=== PATIENT | male | born 1945 | race Caucasian/White ===

== ENCOUNTER 2024-09-23 06:19 | Observation (INO) ==
--- NOTE | 2024-08-25 08:52 | PAT Medication Instructions ---
Medication Instructions Date of Service August 25, 2024 Home Medications Medication Instructions Recorded tramadol 50 mg tablet 50 mg PO Q4H PRN pain #15 tabs 11/07/23 amlodipine 5 mg tablet 5 mg PO QAM carvedilol 3.125 mg tablet 3.125 mg PO QAM losartan 100 mg tablet 100 mg PO QAM tramadol 50 mg tablet 50 mg PO Q4H PRN ibuprofen 200 mg tablet 200 mg PO Q6H PRN ASK your surgeon for instructions ibuprofen 200 mg tablet 200 mg PO Q6H PRN DO NOT take the morning of surgery losartan 100 mg tablet 100 mg PO QAM Take morning of surgery With a small sip of water, OTHERWISE NOTHING TO EAT OR DRINK AFTER MIDNIGHT: amlodipine 5 mg tablet 5 mg PO QAM carvedilol 3.125 mg tablet 3.125 mg PO QAM tramadol 50 mg tablet 50 mg PO Q4H PRN(if needed) Take evening before surgery tramadol 50 mg tablet 50 mg PO Q4H PRN(if needed) Other Notes If you have any questions please call us at [phone] or [phone] or [phone] or [phone]
--- NOTE | 2024-08-29 12:42 | Anesthesiology Consultation ---
Date of Service August 29, 2024 Assessment & Plan (1) Encounter for pre-operative examination: - Case discussed in detail with Dr. Ledesma who advised patient is acceptable to proceed, nothing additional is needed. - Outpatient joint assessment: Patient is currently scheduled for inpatient pathway. If re-evaluated and patient/surgeon requests outpatient pathway, patient is not advised candidate for outpatient joint program from anesthesia standpoint. Chart Review Chart Review: Acceptable Risk for Surgery and Patient seen in Pre Admission Testing Teaching & Discussion Pre-Anesthesia Teaching/Discussion Notes: Instructed NPO after midnight before surgery, except medications with 15 cc of water. Medication instructions provided according to the PAT guidelines. History Surgery Operation Date: 09/23/24 10:40 Proposed Procedures p Right Total Knee Arthroplasty - Osvaldo Ortiz MD Height/Weight Height: 5 ft 7 in Weight: 92.2 kg Allergies Allergy/AdvReac Type Severity Reaction Status Date / Time oxycodone AdvReac Severe hallucinati Verified 09/01/24 08:37 ons Medications Home Medications Medication Instructions Recorded Confirmed Last Taken amlodipine 5 mg tablet 5 mg PO QAM 11/01/23 08/25/24 11/07/23 05:30 carvedilol 3.125 mg tablet 3.125 mg PO QAM 11/01/23 08/25/24 11/07/23 05:30 losartan 100 mg tablet 100 mg PO QAM 11/01/23 08/25/24 11/06/23 tramadol 50 mg tablet 50 mg PO Q4H PRN pain #15 tabs 11/07/23 08/25/24 Unknown ibuprofen 200 mg tablet 200 mg PO Q6H PRN Pain 08/25/24 08/25/24 Unknown Wheeled Walker #1 ea 08/29/24 08/29/24 Unknown Past Medical History Medical History History of COVID-19 (~2021) denies hospitalized-symptoms resolved History of skin cancer excision from scalp HTN (hypertension) controlled, stable per pt Hx of myocardial infarction remote hx- ~ 2016-states old AL was noted on previous EKG, no treatment, denies cardiac cath, unsure if he had stress test at that time, does not follow w/ cardio Patient denies h/o stroke, seizures, heart failure, DM, blood clots/DVTs or blood transfusions. Exercise / Class Metabolic Activity II 4-5 Yardwork/Stairs/Walk up hill (denies chest discomfort or shortness of breath with one flight of stairs) Past Family History Family History Father Diabetes Heart disease Lung cancer Mother Breast cancer Past Surgical History Surgical History History of carpal tunnel release of both wrists History of left knee replacement Hx of colonoscopy Hx of elbow surgery right recurrent cubital Tunnel Syndrome Hx of knee surgery right knee arthroscopic Hx of shoulder surgery left Past Anesthesia History No Hx of Anesthesia Complications and No Family Hx of Anesthesia Complications History of PONV No Hx of PONV and No Hx of Motion Sickness Social History Smoking Status: Never smoker Do You Dip or Chew Tobacco: No Hx Alcohol Use: No Hx Substance Use: No substance use type: does not use Review of Systems Snoring, denies witnessed apneas. Patient denies chest pain, shortness of breath, dyspnea on exertion, reflux, fever, chills, cough, wheezing, or palpitations. Physical Exam Vital Signs Vitals BP 153/73 P 65 TEMP 98.3 SP02 96% on RA RESP 18 Physical Patient resting comfortably in chair in no acute distress, alert and oriented, responding appropriately throughout visit Full cervical extension range of motion without pain TMD < 3 finger breadths Mallampati Score 3 Dentition: broken tooth, denies loose teeth, caps/crowns, implants or bridges Lungs: normal respiratory effort. Good air movement, clear throughout to auscultation, no adventitious breath sounds Cardiac: regular rate and rhythm, no murmurs noted Carotid arteries: negative bruit bilat Lab Results Anesthesia Preop Results Results Anesthesia Widget: WBC 5.68 K/ul (4.8-10.8) 08/29/24 Hgb 15.2 g/dl (14.0-18.0) 08/29/24 Hct 45.9 % (42.0-52.0) 08/29/24 Plt 190 K/uL (130-400) 08/29/24 Na 141 mmol/L (136-145) 08/29/24 K 4.6 mmol/L (3.5-5.1) 08/29/24 Cl 108 mmol/L (98-107) H 08/29/24 CO2 27 mmol/L (21-32) 08/29/24 BUN 21 mg/dl (6-23) 08/29/24 Creat 1.24 mg/dl (0.6-1.4) 08/29/24 Glucose Level 100 mg/dl (70-99(Fasting)) H 08/29/24 PT 11.5 Seconds (9.0-12.0) 08/29/24 PTT 26 Seconds (21-31) 08/29/24 INR 1.1 (0.9-1.1) 08/29/24 Blood Type A Negative 08/29/24 Antibody Screen NEGATIVE 08/29/24 Testing Electrocardiogram Date: 11/02/23 NSR, rate 65 bpm Chest X-Ray Date: 08/29/24 1. Mildly enlarged cardiac size with mildly accentuated vascular markings, correlate with clinical findings. 2. No focal or acute lung lesions. 3. No significant interval changes.
[2024-09-23] MEDS ORDERED: BUPIVACAINE 0.5 % 5 MG/1 ML PF 10ML VIAL ONE (06:26)
[2024-09-23] MEDS ORDERED: ROPIVACAINE 0.5% 5 MG/ML 30 ML VIAL ONE (06:26)
--- NOTE | 2024-09-23 06:51 | History & Physical Bridge Note ---
Date of Service September 23, 2024 History & Physical Bridge Note I have examined the patient, reviewed the History & Physical and in the interval since the performance of the History & Physical I have noted the following changes of clinical significance: no changes noted
[2024-09-23] MEDS: ACETAMINOPHEN 500 MG TAB PO SCH ×2 (07:27→13:53)
[2024-09-23] MEDS: METOCLOPRAMIDE HCL 10 MG TABLET PO SCH (07:28)
[2024-09-23] MEDS: CeleBREX 200 MG CAP PO SCH (07:28)
[2024-09-23] MEDS ORDERED: MIDAZOLAM HCL 1 MG/ML 2ML VIAL ONE (07:28)
[2024-09-23] MEDS ORDERED: LIDOCAINE 2% 2 ML VIAL/AMP(20MG/ML) INFIL ONE (07:28)
[2024-09-23] MEDS ORDERED: PROPOFOL IV EMULSION 10 MG/ML 20 ML VIAL IV ONE (07:28)
[2024-09-23] MEDS: LR 60ML/HR IV SCH (07:28)
[2024-09-23] MEDS: FAMOTIDINE 20 MG TAB PO SCH (07:28)
[2024-09-23] MEDS ORDERED: fentaNYL citrate PF 100 MCG/2 ML VIAL ONE (07:29)
[2024-09-23] MEDS: LR 500ML BOLUS, THEN 15ML/HR IV SCH (07:29)
[2024-09-23] MEDS: dexAMETHasone**PF** 10 MG/ML VIAL IV ONE (07:48)
[2024-09-23] MEDS ORDERED: ONDANSETRON INJ 2 MG/ML 2 ML VIAL IV PRN ×2 (08:29→13:04)
[2024-09-23] MEDS ORDERED: ePHEDrine sulfate 50 MG/ML AMP IV PRN (08:29)
[2024-09-23] MEDS ORDERED: fentaNYL citrate PF 100 MCG/2 ML VIAL IV PRN (08:29)
[2024-09-23] MEDS ORDERED: ATROPINE SULFATE 0.1 MG/ML 10ML SYR IV PRN (08:29)
[2024-09-23] MEDS: ceFAZolin 2000MG 2,000 MG/15 ML SYR IV SCH ×2 (08:59→16:56)
[2024-09-23] MEDS: ORTHO JOINT ANESTHETIC ONE (09:22)
[2024-09-23] MEDS: ROPIV 0.5% 246mg, Ketorolac 30mg, EPINEPHrine 0.5mg in NSS INFIL SCH (09:22)
[2024-09-23] MEDS ORDERED: SODIUM CHLORIDE 0.9% PF INJ 10 ML VIAL ONE (09:37)
[2024-09-23] MEDS ORDERED: ePHEDrine sulfate 50 MG/ML AMP ONE (09:37)
[2024-09-23] MEDS: dexAMETHasone**PF** 10 MG/ML VIAL ONE (09:44)
[2024-09-23] MEDS: TRANEXAMIC ACID 1,000 MG **IV Intra-op IV SCH (09:55)
--- OUTSIDE RECORDS SUMMARY | 2024-09-23 10:12 | External Medical Summary | Summary of Care ---
Author Name Unknown Organization [facility] Address [address] [place] [address] Phone [phone] Care Team Providers Care Lock Operator Name Role Phone Andres Strange MD Primary Care Provider [phone] Reason for Visit * Reason Comments eRx-Medication Refill Encounter Details Date Type Department Care Team ([facility] st Contact Info) Description [facility] [address], [place] [id number] Andres Strange MD [address] [place] [address] Hypertension goal BP (blood pressure) < 140/90 Allergies No known active allergiesdocumented as of this encounter (statuses as of 09/01/2024) Medications Nitroglycerin 0.4 MG Sublingual Tablet Sublingual (Nitrostat)Ind ications:Coron lavinia artery disease involving [place] coronary artery of [place] heart without angina pectoris Place under the tongue 1 Tablet as needed for Pain, Chest. May repeat 3 times. If chest pain continues, call 911. 25 Tablet 3 2 Active Tadalafil 20 MG Oral Tablet (Cialis) One to four hours prior to intercourse , no more than 1 dose in 24 hours 10 Tablet 11 3 Active Carvedilol 3.125 MG Oral Tablet (Coreg)Indicat ions:Hypertens ion goal BP (blood pressure) < 140/90 TAKE ONE TABLET BY MOUTH TWICE A DAY (EVERY MORNING AND EVERY EVENING) WITH MEALS 60 Tablet 5 4 Active Losartan Potassium 100 MG Oral Tablet (Cozaar)Indica tions:Hyperten jenelle goal BP (blood pressure) < 140/90 TAKE ONE TABLET BY MOUTH EVERY MORNING 30 Tablet 5 4 Active amLODIPine Besylate 5 MG Oral Tablet (Norvasc)Indic ations:Hyperte nsion goal BP (blood pressure) < 140/90 TAKE ONE TABLET BY MOUTH EVERY DAY 30 Tablet 5 4 Active amLODIPine Besylate 5 MG Oral Tablet (Norvasc)Indic ations:Hyperte nsion goal BP (blood pressure) < 140/90 TAKE ONE TABLET BY MOUTH EVERY DAY 30 Tablet 5 4 09/01/20 24 Discontinued documented as of this encounter (statuses as of 09/01/2024) Active Problems Problem Noted Date Diagnosed Date CAD (coronary artery disease) 05/09/2016 Dyslipidemia 05/09/2016 HTN, goal below 140/90 05/09/2016 documented as of this encounter (statuses as of 09/01/2024) Immunizations Name Administration Dates Next Due Pneumococcal Polysaccharide PPV23 (Pneumovax) documented as of this encounter Social History Tobacco Use Types Packs/Day Years Used Date Smoking Tobacco: Never Smokeless Tobacco: Never Alcohol Use Standard Drinks/Week Comments Yes 0 (1 standard drink = 0.6 oz pur e alcohol) rare Sex and Gender Information Value Date Recorded Sex Assigned at Not on file Legal Sex Male 5:05 AM EST Gender Identity Not on file Sexual Orientation Not on file documented as of this encounter Functional Status * Are you deaf or do you have serious difficulty hearing? Answer Date of Assessment Author No 04/21/2022 7:00 AM Yvrose Medellin LPN * Are you blind or do you have serious difficulty seeing, even when wearing glasses? Answer Date of Assessment Author No 04/21/2022 7:00 AM Yvrose Medellin LPN * Do you have serious difficulty walking or climbing stairs? (5 years old or older) Answer Date of Assessment Author No 04/21/2022 7:00 AM Yvrose Medellin LPN * Do you have difficulty dressing or bathing? (5 years old or older) Answer Date of Assessment Author No 04/21/2022 7:00 AM EDT Yvrose Villarreal LPN * Because of a physical, mental, or emotional condition, do you have difficulty doing errands alone such as visiting a doctors office or shopping? (15 years old or older) Answer Date of Assessment Author No 04/21/2022 7:00 AM EDT Yvrose Villarreal LPN documented as of this encounter Mental Status * Because of a physical, mental, or emotional condition, do you have serious difficulty concentrating, remembering, or making decisions? (5 years old or older) Answer Entry Date Author No 04/21/2022 7:00 AM EDT Yvrose Villarreal LPN documented in this encounter Miscellaneous Notes * Telephone Encounter - Andres Strange MD - 09/01/2024 7:24 AM ESTSigned Prescriptions: Disp Refills amLODIPine Besylate 5 MG Oral Tablet (Norv*30 Tab*5 Sig: TAKE ONE TABLET BY MOUTH EVERY DAY Authorizing Provider: ANDRES STRANGE * Telephone Encounter - Amber Arreola CCMA - 09/01/2024 6:36 AM ESTPending Prescriptions: Disp Refills amLODIPine Besylate 5 MG Oral Tablet [Phar*30 Tab*5 Sig: TAKE ONE TABLET BY MOUTH EVERY DAY documented in this encounter Plan of Treatment Upcoming Encounters Date Type Department Care Team ([facility]) Description 07/27/2025 9:20 AM EDT Office Visit Dermatology Ethan Lopez [address] [place] [address] Leanne Kidd MD [address] [place] [address] Health Maintenance Due Date Last Done Comments Depression Screening 1957 Hepatitis C Screening 1963 DTap/Tdap Vaccines (1 - Tdap) 1964 Zoster Vaccines (1 of 2) 1995 Adult Wellness Visit 2011 Pneumococcal Vaccine: 65+ Years (2 of 2 - PCV) 10/09/2020 10/09/2019, 09/18/2015 *BASELINE EKG FOR HTN 09/03/2023 COVID-19 Vaccine (1 - 2023-2 5 season) 2024 Influenza Vaccine (FLU shot) (#1) 2024 GFR 08/31/2024 08/31/2023, 10/09/2019, 01/28/2018 Albumin/Creatinine Ratio 08/31/2026 023, 10/09/2019, 01/28/2018 HPV (Gardasil) Vaccine Aged Out No lo nger eligible based on patient's age to complete this topic Hepatitis B Vaccine Aged Out No longe r eligible based on patient's age to complete this topic MENINGOCOCCAL (MENACTRA/MENVEO) Aged Out No longer eligible b ased on patient's age to complete this topic documented as of this encounter Medical Devices Not on filedocumented as of this encounter Visit Diagnoses Diagnosis Hypertension goal BP (blood pressure) < 140/90 Unspecified essential hypertension documented in this encounter Care Teams Lock Operator Relationship Specialty Start Date End Date Andres Strange MD [address] [place] [id number] PCP - General Internal Medicine 04/11/16 documented as of this encounter
--- NOTE | 2024-09-23 10:51 | Operative Report ---
PG Post Operative Report Pre & Post Diagnosis Operation Date: 09/23/24 08:50 Pre-Op Diagnosis: Osteoarthritis Right Knee Post-Op Diagnosis: Osteoarthritis Right Knee I identified the patient and participated in the time-out.: Yes Procedure Operation Date: 09/23/24 08:50 Actual Procedures p Right Total Knee Arthroplasty, Cemented(Right) - Osvaldo Ortiz MD Surgeon Osvaldo Ortiz MD Radio Message Router Yaniv Fernandez PA-C Estimated Blood Loss 50 Findings Consistent with Post-Op Diagnosis Operative findings were advanced right knee DJD. He extensive grade 4 [id number] disease of the medial femoral condyle medial tibial plateau. He had a varus deformity to his knee. Moderate-sized joint effusion. Specimens Right knee sent for pathology. Anesthesia Type Spinal MAC Complications none Disposition Accompanied Patient To Recovery: No Indications Patient is a 78-year-old gentleman said a fairly long history of knee problems. He had previous left knee replacement about 9 years ago and done well from this. He has a history of an open meniscectomy on his right knee many years ago. Over the years he developed increased pain discomfort deformity to his knee. He failed all conservative measures. X-rays showed advanced right knee medial compartment arthritis. He elected proceed with right total knee arthroplasty. Description of Procedure Operative implants consist of: 1. Biomet Vanguard size 62.5 right posterior stabilized femoral component. 2. Biomet size 71 tibial tray. 3. 10 mm posterior stabilized polyethylene insert. 4. 31 x 8 all poly patella. The patient was taken the op room, identified, placed on the operating table in the supine position. All contact areas were appropriately padded. IV antibiotics fibra anesthesia team. A spinal anesthetic and adductor canal block had been Weida in the holding area. Right side turn was then placed. The right lower extremity was then prepped and draped in usual sterile fashion. The right leg was elevated and exsanguinated with use of an Esmarch and the turn was placed at 300 mmHg. An anterior approach to the right knee was then formed to longitudinal incision centered over the patella. Sharp dissection was Through subcutaneous tissue down the extensor mechanism. A medial parapatellar arthrotomy incision was made. Some subperiosteal dissection was carried out medially. The fat pad was resected from Neath patella tendon. Lateral patellofemoral ligament was released. Patella subluxated laterally and the knee was flexed. The osteophytes taken off distal femur. The ACL and PCL were then released from distal femur the tibia subluxated anteriorly. The external treatment LYMErix then placed on the interface the tibia and adjusted 14 mm medially. Proximal tibial cut was made remove out of millimeter bone from the most efficient aspect medial tibial plateau. The tibia was sized to a size 71. Attention drawn the femur. The distal femur was under sharp drop with intramedullary canal was suction. A right 6 degree valgus cutting guide was placed. The distal femoral cutting block was pinned in place. Distal femoral cut was made to take an additional 3 mm of bone off distal femur. The femur was then sized to a size 62.5. The AP cutting block was pinned parallel to the epicondylar axis which was 3 degrees of external rotation. The anterior cut, anterior chamfer, posterior cut, posterior chamfer cuts were made. The box cutting guide was placed in the just slight lateral and the box cut was made. The knee was flexed. The remnants of the medial and lateral menisci were excised. The osteophytes taken off the posterior aspect the femur. A trial femoral component was placed. The tibial tray was pinned in Mirna external rotation and the drill and stem punch use great defect in proximal tibia for the tibial tray. Knee was then trialed and the 10 mm insert fit most appropriately. Attention valve the patella. The patella was cleaned of all soft tissues. Patella thickness measured 22 mm in thickness was cut down to 14. Was sized to a size 31 patella. The lug holes were drilled for 31 patella. The lateral osteophytes removed. The patella bu tton was placed. Knee was taken through range of motion and the patella tracked nicely with no thumbs test. Attention was then drawn toward placing the permanent components. All trial components were removed. Bone plug was placed into the distal femur limit blood loss. A double batch Palacos G cement was mixed. A Biomet Vanguard size 62.5 right posterior stabilized femoral component, size 71 tibial tray, a 10 mm posterior Byce polyethylene insert, and a 31 x 8 all poly patella then cemented in place. The knee was brought out in full extension till cement hardened. Final cement check was then performed. The pericapsular tissues were injected with total 100 cc of Ortho mix. Patient did receive 1 g tranexamic acid. The tourniquet was then let down for final treatment time 60 minutes. Hemostasis assured with electrocautery. Extensor Metros then closed with combination 1 PDS suture #1 Vicryl suture in a [id number] fashion. Extensor Meclomen checked found to be intact. Subcutaneous tissue then closed with 2 Dexon suture buried interrupted fashion skin was closed skin george. Leg was then cleaned and dried and a sterile dressing with Xeroform, 4 fours, sterile cast padding, Jt bandage were applied. The patient then transferred to the recovery room in stable condition. Patient tolerated procedure well and there were no complications. Yaniv Fernandez, my physician accounts receivable assistant, was present for the entire procedure. His assistance was essential and required for appropriate patient positioning, prepping and draping, surgical exposure, performing the technical details of the operation, placement the implants, closure of the wound, and placement of the sterile bandage. I attest to the content of the Intraoperative Record and any orders documented therein. Any exceptions are noted below.
--- NOTE | 2024-09-23 11:15 | XRay Report ---
XR knee RT 1 or 2V routine HISTORY: 78 years-old Male Surgical Post Op right knee arthroplasty COMPARISON: Radiographs 08/29/2024 TECHNIQUE: 2 views of the right knee FINDINGS: Total joint arthroplasty with patellar resurfacing. Anterior midline skin george with expected posto perative soft tissue swelling and deep tissue air. No acute fracture or unexpected opaque foreign bod y. IMPRESSION: Total joint arthroplasty with expected postoperative changes. ACT 112: Negative or not required by law. The above report was generated using voice recognition software. It may contain grammatical, syntax o r spelling errors. Electronically signed by: Cole Castillo M.D. 09/23/2024 11:14 AM
--- NOTE | 2024-09-23 12:26 | Anesthesiology Progress Note ---
Date of Service September 23, 2024 Anesthesia Post Procedure Vital Signs Vital Signs: Temp Pulse Pulse Resp BP Pulse Ox O2 Del Method 09/23/24 12:20 77 15 129/72 96 Room Air 09/23/24 12:10 76 16 129/71 94 Room Air 09/23/24 12:00 97.5 F L 77 20 127/66 95 Room Air 09/23/24 11:50 72 16 128/67 94 Room Air 09/23/24 11:40 72 20 131/67 94 Room Air 09/23/24 11:30 71 16 129/72 93 Room Air 09/23/24 11:20 72 16 113/69 96 Room Air 09/23/24 11:10 69 20 116/59 L 95 Room Air 09/23/24 11:00 70 16 113/57 L 95 Oxymask 09/23/24 10:50 71 18 114/63 99 Oxymask 09/23/24 10:47 97.9 F 73 12 110/61 97 Oxymask 09/23/24 07:16 98.1 F 75 20 143/83 H 97 Room Air O2 Flow Rate 09/23/24 12:20 09/23/24 12:10 09/23/24 12:00 09/23/24 11:50 09/23/24 11:40 09/23/24 11:30 09/23/24 11:20 09/23/24 11:10 09/23/24 11:00 2 09/23/24 10:50 6 09/23/24 10:47 6 09/23/24 07:16 Transfer of Care Handoff Completed per policy Notes Mental Status: alert / awake / arousable and participated in evaluation Patient Amnestic to Procedure: Yes Nausea / Vomiting: adequately controlled Pain: adequately controlled Airway Patency, RR, SpO2: stable & adequate BP & HR: stable & adequate Hydration State: stable & adequate Neuraxial Anesthesia: was administered and sensory block is resolving Anesthetic Complications: no major complications apparent and Pt Satisfied with anesthetic care
[2024-09-23] MEDS ORDERED: MAGNESIUM HYDROXIDE SUSP 30 ML UDC PO PRN (13:04)
[2024-09-23] MEDS ORDERED: METOCLOPRAMIDE HCL INJ 5 MG/ML 2 ML VIAL IV PRN (13:04)
[2024-09-23] MEDS ORDERED: bisacodyL 10 MG SUPP PR PRN (13:04)
[2024-09-23] MEDS ORDERED: HYDROmorphone INJ 0.5 MG/0.5 ML SYR IV PRN (13:04)
[2024-09-23] MEDS ORDERED: NALOXONE HCL 0.4 MG/1 ML VIAL/CARP IV PRN (13:04)
[2024-09-23] MEDS ORDERED: ALUMINUM/MAGNESIUM SUSP 30 ML UDC PO PRN (13:04)
[2024-09-23] MEDS ORDERED: oxyCODONE HCL IR 5 MG TAB (IMMEDIATE RELEASE) PO PRN (13:04)
[2024-09-23] MEDS: KETOROLAC TROMETHAMINE 15 MG/ML VIAL IV SCH (13:53)
[2024-09-23] MEDS: TRANEXAMIC ACID / 0.7% NACL 1,000 MG/100 ML BAG IV SCH (16:55)
[2024-09-23] MEDS: ASCORBIC ACID 500 MG TAB PO SCH (16:56)
[2024-09-23] MEDS: carvediloL 3.125 MG TAB PO SCH (16:56)
[2024-09-23] MEDS: SENNA 8.6 MG TAB PO SCH (20:19)
[2024-09-23] MEDS: DOCUSATE SODIUM 100 MG CAP PO SCH (20:19)
[2024-09-23] MEDS: ASPIRIN 81 MG ECTAB PO SCH (20:20)
[2024-09-23] MEDS ORDERED: SENNA 8.6 MG TAB PO SCH (21:00)
[2024-09-24 06:35] LABS: Hematocrit (blood only) 40.9 % (42.0-52.0); Hemoglobin 13.7 g/dl (14.0-18.0); Mean Corpuscular Hemoglobin 29.5 pg (25.0-34.0); Mean Corpuscular Hgb Conc 33.5 g/dL (32.0-36.0); Mean Corpuscular Volume 88.1 fL (80.0-100.0); Mean Platelet Volume 9.7 fL (9.4-12.4); Platelet Count 186 K/uL (130-400); RDW Coefficient of Variation 13.2 % (11.5-14.5); RDW Standard Deviation 42.4 fL (36.4-46.3); Red Blood Count 4.64 M/uL (4.70-6.10); White Blood Count 16.76 K/ul (4.8-10.8)
[2024-09-24 06:50] LABS: BUN Creatinine Ratio 19.4 (10-20); Calcium 8.7 mg/dl (8.6-10.3); Potassium 4.7 mmol/L (3.5-5.1)
--- NOTE | 2024-09-24 07:52 | Orthopedic Progress Note ---
Date of Service September 24, 2024 Assessment & Plan (1) Status post right knee replacement: Plan: 78-year-old gentleman postop day 1 from right knee replacement doing pretty well. Pains controlled. He is neurologically intact. Creatinine is little bit elevated and we will hold his Toradol. Plan: 1. DVT prophylaxis including thigh-high teds, SCDs, aspirin twice a day. 2. PT/OT. Weight-bear as taught. Right total knee protocol. 3. Pain control. Doing well with current pain regimen. 4. Disposition. Plan to discharge home with some home health later today. Admission and Anticipated Discharge Date Admission Date: September 23, 2024 Subjective 78-year-old gentleman postop day 1 from a right knee replacement. He is doing pretty well. Had a good night. Pains controlled. No chest pain or shortness of breath. Not feeling dizzy or lightheaded. Physical Exam Physical Exam: Physical examination is a pleasant middle-age male. He is lying in bed looks comfortable. Examination of the right leg reveals leg to be well aligned. Dressings clean dry and intact. Can dorsiflex and plantarflex his foot appropriately. He can do a good straight leg raise. Respiratory: normal respiratory effort, lungs clear to auscultation Cardiovascular: RRR, no murmur, no edema Gastrointestinal (Abdomen): normal bowel sounds, soft, nontender, no hepatosplenomegaly Results & Data Vital Signs (Past 12 Hours) Vital Signs Temp Pulse Resp BP BP Pulse Ox O2 Del Method 09/24/24 07:07 36.5 C 76 16 136/70 96 Room Air 09/24/24 03:57 36.6 C 86 18 125/66 97 Room Air 09/23/24 22:36 36.4 C L 84 18 135/62 97 Room Air Laboratory Results Hemoglobin is 13.7. Hematocrit is 40.9. Electrolytes are stable. Creatinine is a little bit elevated at 1.65.
[2024-09-24] MEDS: LOSARTAN POTASSIUM 50 MG TAB PO SCH (08:02)
[2024-09-24] MEDS: amLODIPine BESYLATE 5 MG TAB PO SCH (08:02)
[2024-09-24] MEDS: TAMSULOSIN HCL 0.4 MG CAP PO SCH (08:02)
[2024-09-24] MEDS: MULTIVITAMIN TAB PO SCH (08:02)
[2024-09-24] MEDS: dexAMETHasone 10 MG in SYRINGE 0 ML IV SCH (08:06)
--- NOTE | 2024-09-26 06:38 | Discharge Summary ---
Date of Service September 26, 2024 Principal Diagnosis Same as "Discharge Diagnosis" noted below under Discharge Instructions. Discharge Data Procedures Performed Operation Date: 09/23/24 08:50 Actual Procedures p Right Total Knee Arthroplasty, Cemented(Right) - Osvaldo Ortiz MD Ordered Studies 09/23/24 05:00 US - OR guided needle placemen Routine Hospital Course (1) Status post right knee replacement: This is a 78 year old patient admitted on 09/23/24 and underwent total knee arthroplasty. He tolerated the procedure well and there were no complications. Transferred to the PACU post op and later to the orthopedic floor for further care. He was given ancef for antibiotic prophylaxis. He was also given SYD stockings, SCDs, and aspirin for DVT prophylaxis. Hemoglobin, hematocrit, and vital signs were monitored during his hospital stay and remained stable. Did not require any blood transfusions. There were no complications during his hospital stay. By post op day #1 the patient was tolerating a regular diet, pain was reasonably controlled with oral pain medicine, and he was participating in physical therapy. On post op day #1 the patient was discharged home and set up with home health care. He was given printed discharge instructions including prescriptions for extra strength tylenol, aspirin, cefadroxil, ketorolac, zofran, senokot, oxycodone, and flomax. Continue physical therapy, weight bearing as tolerated. Continue SYD stockings. Follow up approximately 2 weeks post op or sooner if there are problems or concerns. PG Care Time/CCT Total # of Minutes Spent Total Time Spent with Patient: Total time spent is greater than 50% in coordination of care (as documented) at patient's floor/unit and/or counseling patient: Discharge Plan Discharge Items Patient Disposition: Home - Home Health Services Reason For Visit: Arthritis Right Knee Discharge Diagnosis: Right Knee Replacement Activity: Per Instructions section Weightbearing: Full weightbearing Non-emergency contact: Surgeon Call non-emergency contact if: you have any medication questions Follow-up/Referrals: PCP,NO [Primary Care Provider] - Diet: Regular Addtl Attending Provider Instructions: ACTIVITY RECOMMENDATIONS: Diet: * You may resume previous diet. Physical Therapy: * You will go to physical therapy three times each week for four to six weeks after your surgery in order to regain your knee range of motion and to retrain your knee to work properly. * It is just as important to make sure you are getting your knee perfectly straight as it is to regain your knee bend. * Taking a pain pill an hour before therapy can help you have a more productive and comfortable therapy session. Home Exercise: * You were shown a series of exercises (heel props, heel slides, etc.) in the hospital. Do these exercises three to four times each day including the exercises you were shown in physical therapy. Walking: * Get up and walk several times each day. For the first four weeks, try not to stand or walk for more than one hour at a time. If you do stand or walk for more than one hour, you will not hurt anything, but your knee and leg will likely swell. * As you feel comfortable, you may change from the walker or crutches to a cane and then to independent walking. MEDICATIONS: New Medicine: * You will likely be taking one or more of these medications: 1. Oxycodone - A quick and shorter-acting pain medication. Take one to two tablets every six hours to lessen your pain. 2. Aspirin - Thins your blood to lessen the chance of forming a blood clot. * The most common side effects of pain medicine and iron are nausea and constipation. If nausea or constipation is too much of a problem or if you have any questi ons about your new medicines or doses, call [facility] at . We will try to help you manage these issues. "VERY IMPORTANT TO READ AND REVIEW" Pain: * The immediate post-operative period after knee replacement surgery is often quite painful. * You are given a prescription for pain medicine. You should take it, as directed, when you need it, especially before physical therapy and before going to bed. Pain that interferes with sleep is very common and can last several months. * You will likely need pain medicine for the first four to six weeks. It will not stop all of the pain. The pain will lessen and as you feel better, you may change to milder pain medicine such as Tylenol. * The most common side effects of pain medicine are nausea and constipation, so don't take more than you need. SPECIAL CARE INSTRUCTIONS: TEDs/Elastic Stockings: * The white elastic stockings help limit swelling and prevent blood clots from forming in your legs. The more you wear them, the more they work. * Wear them for six weeks after knee replacement surgery and four weeks after partial knee replacement. Incision Site Care: * Remove dressing postoperative day 2 and then shower. Keep direct shower pressure off the incision site. * After showering, cover george with dry gauze and change daily or more frequently if the dressing is getting saturated with drainage. * Use the SYD stockings to hold dressing in place. DO NOT apply tape on the skin. * May completely stop using bandage if wound is dry and no drainage * George are removed between 2 and 3 weeks post-op. If your follow-up appointment is made before 2 weeks, please have your appointment re- scheduled. It is too early to remove the george. Prevention of Infection: * Take antibiotics one hour before any dental cleaning, dental work, urological procedure, gastrointestinal procedure or any invasive surgery in order to prevent your new joint from getting infected. * You may get the antibiotics from the doctor performing the procedure or you may call our office at [phone] before and we will call in a prescription to the pharmacy of your choice. Things to Watch For: * Drainage from the incision site that occurs more than one week after your surgery. * Severely increased knee/leg pain or swelling. * Increased redness at the incision site. * Fever above 102 degrees Fahrenheit. * Unusual chest pain or shortness of breath. * Unusual pain or burning with urination. Call [facility] at [phone] with any of the above problems or if you have any questions about your medicines or recovery. FOLLOW UP VISIT: Make an appointment to see your doctor for approximately two weeks after surgery for a progress check and staple removal by calling the office at [phone]. Pending Studies at Discharge: No Stand-Alone Forms: My [facility], Pain - Opioid Pain Management, Smoking Cessation Medications and DC Order Prescriptions: Continued (DME) allen Misc See Rx Instructions .MEDSUPPLY Qty: 1 0RF Rx Instructions: As directed oxycodone 5 mg tablet 5 - 10 mg PO Q6 PRN (Reason: pain) Qty: 40 0RF Rx Instructions: Take as needed for pain ondansetron 4 mg tablet,disintegrating 4 mg PO Q8 PRN (Reason: nausea) Qty: 20 1RF Rx Instructions: Take as needed for nausea ketorolac 10 mg tablet 10 mg PO Q6 5 Days Qty: 20 0RF Rx Instructions: Take 4 times per day with food for 5 days to lessen pain and swelling. sennosides [Senokot] 8.6 mg tablet 8.6 mg PO BID 14 Days Qty: 28 0RF Rx Instructions: Take two times a day to prevent/treat constipation acetaminophen [Tylenol Extra Strength] 500 mg tablet 1,000 mg PO TID 30 Days Qty: 180 0RF Rx Instructions: Take 3 times per day to lessen pain. aspirin [Chica Low Dose Aspirin] 81 mg tablet,delayed release (DR/EC) 81 mg PO BID 45 Days Qty: 90 0RF Rx Instructions: Take to prevent blood clots. tamsulosin [Flomax] 0.4 mg capsule 0.4 mg PO DAILY Qty: 7 0RF Rx Instructions: Begin night BEFORE surgery to prevent urinary retention cefadroxil 500 mg capsule 500 mg PO BID 7 Days Qty: 14 0RF Rx Instructions: Take 1 cap twice a day to prevent infection (DME) Wheeled Walker Misc See Rx Instructions .MEDSUPPLY Qty: 1 0RF Rx Instructions: As directed amlodipine 5 mg Tablet 5 mg PO QAM carvedilol 3.125 mg Tablet 3.125 mg PO QAM Rx Instructions: must administer with a meal/food losartan 100 mg Tablet 100 mg PO QAM Discontinued tramadol 50 mg tablet 50 mg PO Q4H PRN (Reason: pain) Qty: 15 0RF ibuprofen 200 mg Tablet 200 mg PO Q6H PRN (Reason: Pain) Krames/Other Patient Handouts: DVT Post Op Prevention, Tips After Knee Surgery, Knee Replacement Total Dc Admission Data Admit Date/Time: 09/23/24 10:44 Attending Provider: Osvaldo Ortiz Admit Provider: Osvaldo Ortiz Primary Care Provider: PCP,NO Other Interventions: Discharge Summary Assessment (RN) Last Done: 09/24/24 09:38
== END 2024-09-24 11:50 | disposition home health service (06) ==
LOC: ASU 06:19 → 3E 06:19